=== PATIENT | male | born 1965 | race Caucasian/White ===

== ENCOUNTER 2020-09-15 07:04 | Day surgery (SDC) | payer MEDICAID ==
[~2020-09-15] VITALS: Ht 180.3 cm; Wt 96.1 kg
[2020-09-15] VITALS (7 sets, daily range): BP systolic 118–140; BP diastolic 71–93
[2020-09-15] MEDS ORDERED: normal saline 1000ml 1,000 ML IV PRN (07:30)
[2020-09-15] MEDS ORDERED: CLON-330 PO (07:34)
[2020-09-15] MEDS ORDERED: ALLO100T PO (07:34)
[2020-09-15] MEDS ORDERED: fentaNYL/PF 50MCG/1 ML 2ML syringe ONE ×2 (07:50→08:56)
[2020-09-15] MEDS ORDERED: midazolam 2 mg/2 ml injection ONE ×4 (07:50→09:43)
[2020-09-15] MEDS ORDERED: heparin sodium, porcine/PF 100unit/ml 5ML syringe ONE (07:50)
[2020-09-15] MEDS ORDERED: LIDOcaine 1%/PF 5ML 10 MG/ML VIAL ONE ×2 (07:50→09:16)
[2020-09-15] MEDS ORDERED: iohexol 300 MG/1 ML 50ml polymer ONE (07:50)
[2020-09-15 07:57] LABS: BASOPHILS # (AUTO) 0.1 X10'3 (0-0.2); BASOPHILS % (AUTO) 1.2 % (0-1); EOSINOPHILS # (AUTO) 0.1 X10'3 (0-0.9); EOSINOPHILS % (AUTO) 1.9 % (0-6); HEMATOCRIT 47.6 % (42.0-52.0); HEMOGLOBIN 16.3 g/dl (14.0-17.9); LYMPHOCYTES # (AUTO) 1.1 X10'3 (1.1-4.8); LYMPHOCYTES % (AUTO) 20.2 % (21-51); MEAN CORPUSCULAR HEMOGLOBIN 33.9 PG (27.0-31.0); MEAN CORPUSCULAR HGB CONC 34.3 g/dL (33.0-36.5); MEAN CORPUSCULAR VOLUME 98.9 FL (78-98); MEAN PLATELET VOLUME 7.5 FL (7.4-10.4); MONOCYTES # (AUTO) 0.7 X10'3 (0-0.9); MONOCYTES % (AUTO) 12.8 % (2-12); NEUTROPHILS # (AUTO) 3.4 X10'3 (1.8-7.7); NEUTROPHILS % (AUTO) 63.9 % (42-75); PLATELET COUNT 281 X10'3 (140-440); RED BLOOD COUNT 4.81 X10'6 (4.70-6.10); RED CELL DISTRIBUTION WIDTH 12.7 % (11.5-14.5); WHITE BLOOD COUNT 5.3 X10'3 (4.5-11.0)
[2020-09-15] MEDS ORDERED: FLU VACC QS2020-21(6MOS UP)/PF 60 MCG/0.5 ML SYRINGE IMVAC ONE (09:05)
[2020-09-15] MEDS ORDERED: glucagon, human recombinant 1mg kit ONE (09:22)
--- NOTE | 2020-09-15 10:45 | NUR ---
spoke with pt manjit, per his request. Manjit aware of DC time and states she will be here.
== END 2020-09-15 12:00 | disposition home or self-care (01) ==
LOC: SSTAY O 07:04
PROVIDERS: ATTEND Radiology Diagnostic Radiology
DX: C76.0 Malignant neoplasm of head, face and neck (principal); I10 Essential (primary) hypertension; E66.9 Obesity, unspecified; Z68.29 Body mass index [BMI] 29.0-29.9, adult; Z72.89 Other problems related to lifestyle; Z87.891 Personal history of nicotine dependence; Z79.899 Other long term (current) drug therapy
CPT/HCPCS: 36415; 36561; 49440; 76937; 77001; 85025; 99152; 99153; C1713; C1769; C1788; C1894; J1610; J1642; J2250; J3010; Q9967; B4087

== ENCOUNTER 2021-04-26 11:25 | Day surgery (SDC) | payer MEDICAID ==
[~2021-04-26] VITALS: Ht 180.3 cm; Wt 76.7 kg
[~2021-04-26 11:25] MED LIST: ALLO100T PO; CLON-330 PO
[2021-04-26 11:56] VITALS: BP 168/82
[2021-04-26] MEDS ORDERED: No medications (11:58)
--- NOTE | 2021-04-26 13:00 | NUR ---
Dr Ramey at bedside with [facility] staff.
[2021-04-26 13:30] VITALS: BP 158/74
[2021-04-26] MEDS ORDERED: normal saline 1000ml 1,000 ML IV SCH (13:35)
== END 2021-04-26 14:00 | disposition home or self-care (01) ==
LOC: SSTAY O 11:25
PROVIDERS: ATTEND Radiology Diagnostic Radiology
DX: R59.0 Localized enlarged lymph nodes (principal); Z20.822 Contact with and (suspected) exposure to COVID-19; C76.0 Malignant neoplasm of head, face and neck; C32.9 Malignant neoplasm of larynx, unspecified
CPT/HCPCS: 10005; 87635; C9803

== ENCOUNTER 2021-05-05 11:01 | Day surgery (SDC) | payer MEDICAID ==
[~2021-05-05] VITALS: Ht 180.3 cm; Wt 77.3 kg
[2021-05-05] VITALS (12 sets, daily range): BP systolic 125–153; BP diastolic 67–89
[~2021-05-05 11:01] MED LIST changes: -ALLO100T PO; -CLON-330 PO; +No medications
[2021-05-05] MEDS ORDERED: normal saline 1000ml 1,000 ML IV SCH ×2 (11:25→13:00)
[2021-05-05 12:16] LABS: BASOPHILS % (AUTO) 1.6 % (0-1); EOSINOPHILS # (AUTO) 0.1 X10'3 (0-0.9); EOSINOPHILS % (AUTO) 2.2 % (0-6); HEMATOCRIT 50.5 % (42.0-52.0); HEMOGLOBIN 17.4 g/dl (14.0-17.9); LYMPHOCYTES # (AUTO) 0.6 X10'3 (1.1-4.8); LYMPHOCYTES % (AUTO) 21.4 % (21-51); MEAN CORPUSCULAR HEMOGLOBIN 35.9 PG (27.0-31.0); MEAN CORPUSCULAR HGB CONC 34.5 g/dL (33.0-36.5); MONOCYTES # (AUTO) 0.4 X10'3 (0-0.9); MONOCYTES % (AUTO) 13.4 % (2-12); NEUTROPHILS # (AUTO) 1.6 X10'3 (1.8-7.7); NEUTROPHILS % (AUTO) 61.4 % (42-75); PLATELET COUNT 159 X10'3 (140-440); RED BLOOD COUNT 4.85 X10'6 (4.70-6.10); RED CELL DISTRIBUTION WIDTH 14.3 % (11.5-14.5); WHITE BLOOD COUNT 2.7 X10'3 (4.5-11.0)
[2021-05-05 12:39] LABS: TOTAL CELLS COUNTED 100
[2021-05-05 12:40] LABS: PLATELET ESTIMATE NORMAL
== END 2021-05-05 14:15 | disposition home or self-care (01) ==
LOC: SSTAY O 11:01
PROVIDERS: ATTEND Radiology Diagnostic Radiology
DX: M62.89 Other specified disorders of muscle (principal); I10 Essential (primary) hypertension; Z85.21 Personal history of malignant neoplasm of larynx; Z79.899 Other long term (current) drug therapy
CPT/HCPCS: 20206; 38505; 76705; 77012; 85007; 85025

== ENCOUNTER 2021-11-04 06:37 | Day surgery (SDC) | payer MEDICAID ==
[~2021-11-04] VITALS: Ht 180.3 cm; Wt 83.6 kg
[2021-11-04 07:00] VITALS: BP 137/83
[2021-11-04 10:15] VITALS: BP 149/99
== END 2021-11-04 10:25 | disposition home or self-care (01) ==
LOC: SSTAY O 06:37
PROVIDERS: ATTEND Radiology Vascular & Interventional Radiology
DX: Z45.2 Encounter for adjustment and management of vascular access device (principal); Z20.822 Contact with and (suspected) exposure to COVID-19; Z85.21 Personal history of malignant neoplasm of larynx
CPT/HCPCS: 36590; 87635; C9803